=== PATIENT | female | born 1995 | race Caucasian/White ===

== ENCOUNTER 2021-04-06 17:37 | Emergency (ER) | payer SELFPAY ==
[2021-04-06 17:46] VITALS: BP 115/63; PULSE 83; RESP 16; TEMP 37.1; O2SAT 98
--- NOTE | 2021-04-06 18:00 | ED.BACK ---
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 Patient denies any injury. Patient states she has been working the last couple days and felt a sharp pain down her left leg when she got up yesterday. Patient states she took ibuprofen and pain was relieved. Patient denies any numbness or tingling no saddle anesthesia no bowel or bladder incontinence. MD elicited complaint: back pain Related Data Home Medications Medication Instructions Recorded Confirmed No Home Medications 04/06/21 04/06/21 Allergies Allergy/AdvReac Type Severity Reaction Status Date / Time No Known Allergies Allergy Verified 04/06/21 17:55 Review of Systems Review of Systems: CONSTITUTIONAL: Denies fever, chills, or sweats. EYES: Denies visual changes, redness, or discharge. ENT: Denies rhinorrhea, congestion, sore throat, or otalgia. CARDIOVASCULAR: Denies chest pain, palpitations, or edema. RESPIRATORY: Denies cough or dyspnea. GASTROINTESTINAL: Denies abdominal pain, nausea, vomiting, or diarrhea. GENITOURINARY: Denies dysuria or hematuria. SKIN: Denies rash or itching. MUSCULOSKELETAL: Denies back pain, joint pain, or myalgia. NEUROLOGIC: Denies headache, numbness, or weakness. PSYCHIATRIC: Denies anxiety or depression. PMFSH Comments At time of signature, agree with nursing past medical, surgical, social and family history. There is no relevant family history pertinent to the presenting complaint Exam Narrative: GENERAL: Well-appearing, well-nourished, and in no acute distress. HEAD: Normocephalic, atraumatic. EYES: PERRLA and EOMI. ENT: Nares clear, no rhinorrhea or epistaxis. Mucous membranes moist. NECK: Supple. CHEST: Clear to auscultation. No respiratory distress. HEART: Regular rate and rhythm. No murmur heard. Normal peripheral pulses. ABDOMEN: Soft, nontender, nondistended, normal active bowel sounds. EXTREMITIES: Normal range of motion. No edema. SPINE MIDLINE. NO CURVATURE APPARENT. NO VERTEBRAL POINT SPECIFIC TENDERNESS. NO DEFORMITY. NO STEP-OFFS. NORMAL LE STRENGTH BILATERALLY. NORMAL LE SENSATION BILATERALLY. ABLE TO WALK ON TOES AND HEELS WITH NORMAL DORSIFLEXION AND PLANTAR FLEXION STRENGTH. NO WEAKNESS OBSERVED WITH GAIT. LEFT PARASPINAL MUSCLE TENDERNESS FLEXION STRENGTH. NO WEAKNESS OBSERVED WITH GAIT. LEFT PARASPINAL MUSCLE TENDERNESS. LEFT SI JOINT TENDERNESS. FLEXION AND EXTENSION ROM NORMAL, ONLY SLIGHT LIMITATION. SKIN: Warm, dry, no rash. NEURO: No focal deficits. Alert and oriented x3. [place] Coma Scale Eye Opening: Spontaneous 4 [place] Coma Scale Motor: Obeys Commands 6 [place] A Coma Scale Verbal: Oriented 5 [place] A Coma Scale Total 15 Course Vital Signs Vital signs: Vital Signs Temperature 37.1 C 04/06/21 17:46 Pulse Rate 83 04/06/21 17:46 Respiratory Rate 16 04/06/21 17:46 Blood Pressure 115/63 04/06/21 17:46 Pulse Oximetry 98 04/06/21 17:46 Temperature 37.1 C 04/06/21 17:46 Pulse Rate 83 04/06/21 17:46 Respiratory Rate 16 04/06/21 17:46 Blood Pressure 115/63 04/06/21 17:46 Pulse Oximetry 98 04/06/21 17:46 Critical dx considered and discussed with pt. Educated patient on red flag s/s and to go to ED if s/s occur. Discussed with pt when to return to [facility] or primary care provider. Pt gave verbal undertstanding, all questions were answered, and pt was agreeable to plan PATIENT DECLINES BACK XRAY AT THIS TIME. MDM - Back Pain/Injury Differential Diagnosis Differential diagnosis: Likely lumbar radiculopathy, sciatica, strain of lumbar region, renal colic, pyelonephritis and thoracic back pain Medical Records Attestation: I reviewed the patient's medical records. Jey
== END 2021-04-06 18:19 | disposition home or self-care (01) ==
PROVIDERS: Emergency Provider Nurse Practitioner Family
DX: M54.32 Sciatica, left side (principal); S39.012A Strain of muscle, fascia and tendon of lower back, initial encounter; X50.9XXA Other and unspecified overexertion or strenuous movements or postures, initial encounter
CPT/HCPCS: 99213; G0463

== ENCOUNTER 2021-09-29 19:27 | Emergency (ER) | payer SELFPAY ==
[2021-09-29 19:51] VITALS: BP 121/73; PULSE 95; RESP 16; TEMP 36.9; O2SAT 100
--- NOTE | 2021-09-29 21:01 | ED.FEMALEGU ---
HPI - Female Genitourinary General Chief complaint: Urogenital-Female Stated complaint: vaginal pressure, body itchiness Time Seen by Provider: 09/29/21 21:00 Source: patient and RN notes reviewed Mode of arrival: ambulatory Limitations: no limitations History of Present Illness HPI Narrative: 26-year-old female presents concern for foul-smelling vaginal discharge, vaginal pressure. She reports she has had unprotected sex, denies known exposure to STDs. She denies any vaginal itching or irritation. She denies abdominal pain, abnormal vaginal bleeding. MD elicited complaint: vaginal discharge Related Data Allergies Allergy/AdvReac Type Severity Reaction Status Date / Time No Known Allergies Allergy Verified 09/29/21 20:54 Review of Systems Review of Systems: CONSTITUTIONAL: Denies malaise, chills, sweats, or fever. CARDIOVASCULAR: Denies chest pain, palpitations, or edema. RESPIRATORY: Denies cough or dyspnea. GASTROINTESTINAL: Denies abdominal pain, nausea, vomiting, diarrhea GENITOURINARY: Denies dysuria, frequency, urgency. Reports suprapubic pressure foul-smelling vaginal discharge. Denies flank pain or hematuria. SKIN: Denies rash or itching. MUSCULOSKELETAL: Denies back pain or myalgia. All systems reviewed & are unremarkable except as noted in HPI and below PMFSH Comments At time of signature, agree with nursing past medical, surgical, social and family history. There is no relevant family history pertinent to the presenting complaint Exam Narrative: GENERAL: Well-appearing, well-nourished, and in no acute distress. HEAD: Normocephalic. EYES: PERRLA, conjunctivae clear. NECK: Supple. No lymphadenopathy CHEST: Clear to auscultation. No respiratory distress. HEART: Regular rate and rhythm. SKIN: Warm, dry, no rash. NEURO: Alert and oriented x3. PSYCH: Normal mood and affect Course Course Emergency Course: Patient prefers to be treated for STDs after test results are returned due to lack of insurance. Patient is aware of diagnosis, understands and agrees to treatment plan. Anticipatory guidance given. Patient agrees to follow-up as directed and is aware of reasons to seek care at the emergency department. Portions of this record may have been created with voice recognition software Level of Care: [facility] Visit Vital Signs Vital signs: Vital Signs Temperature 98.4 F 09/29/21 19:51 Pulse Rate 95 09/29/21 19:51 Respiratory Rate 16 09/29/21 19:51 Blood Pressure 121/73 09/29/21 19:51 Pulse Oximetry 100 09/29/21 19:51 Temperature 98.4 F 09/29/21 19:51 Pulse Rate 95 09/29/21 19:51 Respiratory Rate 16 09/29/21 19:51 Blood Pressure 121/73 09/29/21 19:51 Pulse Oximetry 100 09/29/21 19:51 Reviewed. MDM - Female Genitourinary MDM Narrative Medical decision making narrative: Exam findings and UA show no acute concerns or changes; patient is non-toxic appearing and is in no distress. Patient is appropriate for outpatient treatment and follow-up. Differential Diagnosis Differential diagnosis: Likely urinary tract infection and cystitis Critical Care Time Critical Care Time Critical Care Time: No Discharge Plan Discharge Clinical Impression: Bacterial vaginosis Patient Disposition: Home, Self-Care Condition: Stable Instructions: Antibiotic Form, Bacterial Vaginosis (ED) Additional Instructions: Take antibiotics as prescribed. Please read information included about bacterial vaginosis You have been tested for potential gonorrhea, chlamydia, and trichomoniasis today. You have not received antibiotics to treat any STD today. You will receive a phone call in 2-3 days with the results of today's testing and be prescribed any necessary antibiotics, you may have to return for an injection. It is very important that you avoid unprotected intercourse during treatment and for 7 days AFTER TREATMENT is complete and until your partner(s) have been treated. Please enco
== END 2021-09-29 21:00 | disposition home or self-care (01) ==
LOC: EXPBETH 19:33
PROVIDERS: Emergency Provider Nurse Practitioner
DX: N76.0 Acute vaginitis (principal)
CPT/HCPCS: 81003; 81025; 87491; 87591; 87661; 99214; G0463